=== PATIENT | female | born 1985 | race Caucasian/White ===

== ENCOUNTER 2020-05-14 20:15 | Emergency (ER) | payer MEDICARE, MEDICAID ==
--- NOTE | 2020-05-14 21:06 | EDM.PDOC ---
ED HPI GENERAL MEDICAL PROBLEM - General Chief Complaint: General Stated Complaint: Right lateral rib pain Time Seen by Provider: 05/14/20 20:20 Source of Information: Reports: Patient History Limitations: Reports: No Limitations - History of Present Illness INITIAL COMMENTS - FREE TEXT/NARRATIVE: Pt. presents to ER with complaints of respirophasic R lateral lower chest pain. Pt. states that she thinks that she overdid it while rearranging her bedroom this weekend. Denies any specific trauma to the area. She states that the discomfort is worse with deep breathing and movement. Denies any fever or chills. She has not had any cough. She denies any substernal chest, jaw, neck, or arm pain. Pt. has a history of factor 5 leiden and history of PE which happened in 2012. She also has a history of spontaneous pneumothorax in the past as well. Pt. states that she is not short of breath, but states that the discomfort inhibits her ability to take a deep breath. She is not experiencing any calf tenderness. She is a smoker. Denies any hormone replacement therapy or use of control. Pt. is currently on disability due to chronic pain and mental health problems. Onset Date: 05/12/20 Location: Reports: Chest Quality: Reports: Sharp, Stabbing Treatments CLAIM REP: Reports: Acetaminophen, Other (see below) Other Treatments CLAIM REP: Flexeril 5mg. Right lateral ribs Pain Score (Numeric/FACES): 8 - Related Data Allergies Allergy/AdvReac Type Severity Reaction Status Date / Time codeine Allergy Itching Verified 05/14/20 20:45 gabapentin Allergy Swelling Verified 05/14/20 20:45 minocycline Allergy Hives Verified 05/14/20 20:45 trazodone Allergy Excitabilit Verified 05/14/20 20:45 y Home Meds: Home Meds Albuterol [Take Home: Albuterol 18 GM, 1 INH Pack] 2 puff INH Q4H PRN 05/14/20 [History] Cyclobenzaprine [Flexeril] 5 mg PO DAILY 05/14/20 [History] Fluticasone Propionate [Flonase] 1 inh NASBOTH DAILY 05/14/20 [History] Levothyroxine 150 mcg PO DAILY 05/14/20 [History] Loratadine 10 mg PO DAILY 05/14/20 [History] Naltrexone 50 mg PO DAILY 05/14/20 [History] Pantoprazole [ProTONIX] 40 mg PO DAILY 05/14/20 [History] QUEtiapine [SEROquel] 25 mg PO Q6H PRN 05/14/20 [History] Spironolactone 50 mg PO DAILY 05/14/20 [History] Spironolactone [Aldactone] 25 mg PO DAILY 05/14/20 [History] lamoTRIgine [Lamotrigine] 25 mg PO DAILY 05/14/20 [History] lamoTRIgine [Lamotrigine] 100 mg PO DAILY 05/14/20 [History] ED ROS GENERAL - Review of Systems Review Of Systems: See Below Constitutional: Reports: No Symptoms. Denies: Fever, Chills, Malaise, Weakness, Fatigue, Diaphoresis, Weight Loss HEENT: Denies: No Symptoms Respiratory: Reports: Pleuritic Chest Pain. Denies: Shortness of Breath, Cough, Hemoptysis Cardiovascular: Reports: No Symptoms Endocrine: Reports: No Symptoms GI/Abdominal: Reports: No Symptoms : Reports: No Symptoms Musculoskeletal: Reports: No Symptoms Skin: Reports: No Symptoms Neurological: Reports: No Symptoms Psychiatric: Reports: No Symptoms Hematologic/Lymphatic: Reports: Other (see HPI) Immunologic: Reports: No Symptoms ED EXAM, GENERAL - Physical Exam Exam: See Below Exam Limited By: No Limitations General Appearance: Alert, WD/WN, No Apparent Distress Respiratory/Chest: No Respiratory Distress, Lungs Clear, Normal Breath Sounds, No Accessory Muscle Use, Chest Non-Tender Cardiovascular: Regular Rate, Rhythm, No Edema Peripheral Pulses: 4+: Radial (L) GI/Abdominal: Soft, Non-Tender, No Mass (Female) Exam: Deferred Rectal (Female) Exam: Deferred Back Exam: Normal Inspection, Decreased Range of Motion Extremities: Normal Inspection, Normal Range of Motion, Non-Tender, No Pedal Edema, Normal Capillary Refill Neurological: Alert, Oriented, CN II-XII Intact, Normal Cognition, Normal Gait, Normal Reflexes, No Motor/Sensory Deficits Psychiatric: Normal Affect, Normal Mood Skin Exam: Warm, Dry, Intact, Normal Color, No Rash Lymphatic: No Adenopathy Course - Vital Signs Last Recorded V/S: Last Vital Signs Temp 36.2 C 05/14/20 20:15 Pulse 84 05/14/20 20:15 Resp 16 05/14/20 20:15 BP 122/79 05/14/20 20:15 Pulse Ox 95 05/14/20 20:15 - Orders/Labs/Meds Orders: Active Orders 24 hr Category Date Time Status Chest 2V [CR] Stat Exams 05/14/20 20:51 Taken PTT,PARTIAL THROMBOPLSTIN TIME [COAG] Stat Lab 05/14/20 21:06 Received Labs: Laboratory Tests 05/14/20 05/14/20 05/14/20 Range/Units 21:06 21:06 21:06 WBC 13.7 H (4.0-10.0) x10^3/uL RBC 4.93 (4.00-5.50) x10^6/uL Hgb 15.5 (12.0-16.0) g/dL Hct 45.1 (33.0-47.0) % MCV 91.5 (78.0-93.0) fL MCH 31.4 (26.0-32.0) pg MCHC 34.4 (32.0-36.0) g/dL RDW Coeff of Calista 12.7 (10.0-15.0) % Plt Count 351 (130-400) x10^3/uL Neut % (Auto) 77.6 (50.0-80.0) % Lymph % (Auto) 14.1 L (25.0-50.0) % [place] % (Auto) 7.2 (2.0-11.0) % Eos % (Auto) 1.0 (0.0-4.0) % Baso % (Auto) 0.1 L (0.2-1.2) % PT 10.0 (9.5-12.3) SEC INR 0.9 L (2.0-3.5) D-Dimer, Quantitative 0.35 (<=0.58) mg/LFEU Sodium 137 (136-145) mmol/L Potassium 4.3 (3.5-5.1) mmol/L Chloride 100 (98-107) mmol/L Carbon Dioxide 29 (21-32) mmol/L Anion Gap 12.3 (10-20) mmol/L BUN 14 (7-18) mg/dL Creatinine 0.9 (0.55-1.02) mg/dL Est Cr Clr Drug Dosing 77.76 mL/min Estimated GFR (MDRD) > 60 Glucose 102 (74-106) mg/dL Calcium 9.6 (8.5-10.1) mg/dL Corrected Calcium 9.36 (8.5-10.1) mg/dL Total Bilirubin 0.3 (0.2-1.0) mg/dL AST 18 (15-37) U/L ALT 23 (14-59) U/L Alkaline Phosphatase 70 (46-116) U/L Total Protein 7.9 (6.4-8.2) g/dL Albumin 4.3 (3.4-5.0) g/dL Globulin 3.6 Albumin/Globulin Ratio 1.19 - Radiology Interpretation Free Text/Narrative:: chest x-ray negative for acute pathology Departure - Departure Time of Disposition: 21:44 Disposition: Home, Self-Care 01 Clinical Impression: Chest pain, atypical - Discharge Information Instructions: Tramadol tablets, Nonspecific Chest Pain, Adult, [id number] Referrals: PCP,None [Primary Care Provider] - Forms: ED Department Discharge Additional Instructions: tramadol 50mg 1 three times daily as needed for pain Ice painful area for 20 min every hour Continue with the tylenol Follow-up in clinic in 7-10 days if not gradually improving. Sepsis Event Note (ED) - Evaluation Sepsis Screening Result: No Definite Risk - Focused Exam Vital Signs: Vital Signs Temp Pulse Resp BP Pulse Ox 05/14/20 20:15 36.2 C 84 16 122/79 95 - Problem List Review Problem List Initiated/Reviewed/Updated: Yes - My Orders Last 24 Hours: My Active Orders 05/14/20 20:51 Chest 2V [CR] Stat 05/14/20 21:06 PTT,PARTIAL THROMBOPLSTIN TIME [COAG] Stat - Assessment/Plan Last 24 Hours: My Active Orders 05/14/20 20:51 Chest 2V [CR] Stat 05/14/20 21:06 PTT,PARTIAL THROMBOPLSTIN TIME [COAG] Stat Plan: tramadol 50mg 1 three times daily as needed for pain Ice painful area for 20 min every hour Continue with the tylenol Follow-up in clinic in 7-10 days if not gradually improving.
[2020-05-14 21:30] LABS: CHLORIDE,CL 100 mmol/L (98-107); SODIUM,NA 137 mmol/L (136-145)
[2020-05-14 21:31] LABS: ANION GAP 12.3 mmol/L (10-20)
[2020-05-14] MEDS ORDERED: Take Home: traMADol 50 MG, 4 Tab Pack PO ONE (21:48)
--- NOTE | 2020-05-15 07:31 | CR ---
[id number] RAD/RAD Chest PA And Lateral EXAM: FRONTAL AND LATERAL CHEST INDICATION: Right lateral chest pain. COMPARISON: None. DISCUSSION: The heart and lungs are normal in appearance. IMPRESSION: 1. Negative exam. Darrin Mata MD 05/15/20 0729 Thank you for allowing us to participate in the care of your patient.
== END 2020-05-14 21:58 | disposition home or self-care (01) ==
LOC: VM.ED 20:15
DX: R07.89 Other chest pain (principal); Z88.5 Allergy status to narcotic agent; Z88.1 Allergy status to other antibiotic agents; Z88.8 Allergy status to other drugs, medicaments and biological substances
CPT/HCPCS: 36415; 71046; 80053; 85025; 85379; 85610; 85730; 99285; A9270; 99283

== ENCOUNTER 2020-06-02 07:10 | Emergency (ER) | payer MEDICARE, MEDICAID ==
[2020-06-02] MEDS ORDERED: Sodium Chloride 0.9% 10 ML Syringe FLUSH PRN (07:46)
[2020-06-02] MEDS ORDERED: Ondansetron 4 MG/2 ML SDV IVPUSH ONE (07:46)
[2020-06-02] MEDS: Sodium Chloride 0.9% 1,000 ML IV ONE (08:00)
[2020-06-02 08:24] LABS: ANION GAP 14.4 mmol/L (10-20); CHLORIDE,CL 101 mmol/L (98-107); SODIUM,NA 138 mmol/L (136-145)
[2020-06-02 08:31] LABS: BUPRENORPHINE,URINE NEGATIVE (NEGATIVE); MARIJUANA,URINE NEGATIVE (NEGATIVE); METHYLENEDIOXYMETHAMP,UR NEGATIVE (NEGATIVE); PHENCYCLIDINE,URINE NEGATIVE (NEGATIVE)
--- NOTE | 2020-06-02 09:06 | EDM.PDOC ---
ED HPI GENERAL MEDICAL PROBLEM - General Chief Complaint: Behavioral/Psych Stated Complaint: psych Time Seen by Provider: 06/02/20 07:15 Source of Information: Reports: Patient History Limitations: Reports: No Limitations - History of Present Illness INITIAL COMMENTS - FREE TEXT/NARRATIVE: Patient comes into the emergency department with police For acute alcohol intoxication and depressive symptoms. Patient was drinking Last evening after she got into a verbal disagreement with another individual. Patient states that she has been able to maintain her sobriety for approximately 2 years and ended up drinking a 1.75 mL bottle of vodka. She ended up calling the crisis line in [place] where she is originally from and they contacted the police department to do a welfare check. The police were able to assist the patient in transportation to the emergency department for further evaluation. The patient states that she has felt sad and down at times. However she denies any suicidal thoughts, plans or intent. Patient states currently she denies any feelings of sadness, loss of interest, helpless, hopeless, worthless, low energy, fatigue, or depressed symptoms. Patient states that she ended up drinking too much last night and some of her emotions got the best of her however she has no longer any of those symptoms that she was expressing to the crisis line. Patient states that she has never had suicidal ideation plans or intents in the past. Patient denies any other illicit drugs use. Patient states her last drink was approximately 1 hour before arrival to the emergency department. Patient denies any active chest pain, shortness of breath, dizziness, lightheadedness, blurred vision, GI upset, or peripheral edema. Patient also denies any active COVID19 symptoms or exposure to individuals with COVID-19. Severity: Mild Improves with: Reports: None Worsens with: Reports: None Associated Symptoms: Reports: No Other Symptoms - Related Data Allergies Allergy/AdvReac Type Severity Reaction Status Date / Time codeine Allergy Itching Verified 05/14/20 20:45 gabapentin Allergy Swelling Verified 05/14/20 20:45 minocycline Allergy Hives Verified 05/14/20 20:45 trazodone Allergy Excitabilit Verified 05/14/20 20:45 y Home Meds: Home Meds Albuterol [Take Home: Albuterol 18 GM, 1 INH Pack] 2 puff INH Q4H PRN 05/14/20 [History] Cyclobenzaprine [Flexeril] 5 mg PO DAILY 05/14/20 [History] Fluticasone Propionate [Flonase] 1 inh NASBOTH DAILY 05/14/20 [History] Levothyroxine 150 mcg PO DAILY 05/14/20 [History] Loratadine 10 mg PO DAILY 05/14/20 [History] Naltrexone 50 mg PO DAILY 05/14/20 [History] Pantoprazole [ProTONIX] 40 mg PO DAILY 05/14/20 [History] QUEtiapine [SEROquel] 25 mg PO Q6H PRN 05/14/20 [History] Spironolactone 50 mg PO DAILY 05/14/20 [History] Spironolactone [Aldactone] 25 mg PO DAILY 05/14/20 [History] lamoTRIgine [Lamotrigine] 25 mg PO DAILY 05/14/20 [History] lamoTRIgine [Lamotrigine] 100 mg PO DAILY 05/14/20 [History] Past Medical History Cardiovascular History: Reports: Blood Clots/VTE/DVT Respiratory History: Reports: Asthma Psychiatric History: Reports: Other (See Below) Other Psychiatric History: Borderline Personality Disorder Endocrine/Metabolic History: Reports: Hypothyroidism Other Hematologic History: Factor 5 - Past Surgical History GI Surgical History: Reports: Bariatric Procedure Social & Family History - Tobacco Use Smoking Status *Q: Current Every Day Smoker Years of Tobacco use: 5 Packs/Tins Daily: 0 - Recreational Drug Use Recreational Drug Use: No ED ROS GENERAL - Review of Systems Review Of Systems: Comprehensive ROS is negative, except as noted in HPI. Constitutional: Reports: No Symptoms HEENT: Reports: No Symptoms Respiratory: Reports: No Symptoms Cardiovascular: Reports: No Symptoms Endocrine: Reports: No Symptoms GI/Abdominal: Reports: No Symptoms : Reports: No Symptoms Musculoskeletal: Reports: No Symptoms Skin: Reports: No Symptoms Neurological: Reports: No Symptoms Psychiatric: Reports: No Symptoms Hematologic/Lymphatic: Reports: No Symptoms ED EXAM, GENERAL - Physical Exam Exam: See Below Exam Limited By: No Limitations General Appearance: Alert, WD/WN, No Apparent Distress Eye Exam: Bilateral Eye: EOMI, PERRL Neck: Normal Inspection, Supple, Non-Tender, Full Range of Motion Respiratory/Chest: No Respiratory Distress, Lungs Clear, Normal Breath Sounds, No Accessory Muscle Use, Chest Non-Tender Cardiovascular: Normal Peripheral Pulses, Regular Rate, Rhythm, No Edema, No Murmur GI/Abdominal: Normal Bowel Sounds, Soft, Non-Tender, No Distention Back Exam: Normal Inspection, Full Range of Motion Extremities: Normal Inspection, Normal Range of Motion, Non-Tender, Normal Capillary Refill Neurological: Alert, Oriented, CN II-XII Intact, Normal Gait Psychiatric: Normal Affect, Normal Mood Skin Exam: Warm, Dry, Intact, Normal Color, No Rash Course - Vital Signs Last Recorded V/S: Last Vital Signs Temp 36.4 C 06/02/20 07:20 Pulse 76 06/02/20 07:20 Resp 18 06/02/20 07:20 BP 114/74 06/02/20 07:20 Pulse Ox 94 L 06/02/20 07:20 - Orders/Labs/Meds Orders: Active Orders 24 hr Category Date Time Status Sodium Chloride 0.9% [Saline Flush] Med 06/02/20 07:46 Active 10 ml FLUSH ASDIRECTED PRN Peripheral IV Insertion Adult [OM.PC] Stat Oth 06/02/20 07:45 Ordered Medication Orders Sodium Chloride (Saline Flush) 10 ml FLUSH ASDIRECTED PRN PRN Reason: Keep Vein Open Labs: Laboratory Tests 06/02/20 06/02/20 06/02/20 Range/Units 07:55 07:55 07:55 WBC 7.4 (4.0-10.0) x10^3/uL RBC 4.56 (4.00-5.50) x10^6/uL Hgb 14.4 (12.0-16.0) g/dL Hct 41.0 (33.0-47.0) % MCV 89.9 (78.0-93.0) fL MCH 31.6 (26.0-32.0) pg MCHC 35.1 (32.0-36.0) g/dL RDW Coeff of Calista 13.2 (10.0-15.0) % Plt Count 364 (130-400) x10^3/uL Neut % (Auto) 51.8 (50.0-80.0) % Lymph % (Auto) 38.9 (25.0-50.0) % [place] % (Auto) 6.6 (2.0-11.0) % Eos % (Auto) 2.4 (0.0-4.0) % Baso % (Auto) 0.3 (0.2-1.2) % Sodium 138 (136-145) mmol/L Potassium 3.4 L (3.5-5.1) mmol/L Chloride 101 (98-107) mmol/L Carbon Dioxide 26 (21-32) mmol/L Anion Gap 14.4 (10-20) mmol/L BUN 5 L (7-18) mg/dL Creatinine 0.7 (0.55-1.02) mg/dL Est Cr Clr Drug Dosing 99.98 mL/min Estimated GFR (MDRD) > 60 Glucose 98 (74-106) mg/dL Calcium 9.1 (8.5-10.1) mg/dL Corrected Calcium 9.18 (8.5-10.1) mg/dL Total Bilirubin 0.3 (0.2-1.0) mg/dL AST 20 (15-37) U/L ALT 23 (14-59) U/L Alkaline Phosphatase 56 (46-116) U/L Total Protein 7.3 (6.4-8.2) g/dL Albumin 3.9 (3.4-5.0) g/dL Globulin 3.4 Albumin/Globulin Ratio 1.15 Urine Opiates Screen (NEGATIVE) Ur Buprenorphine Scrn (NEGATIVE) Ur Oxycodone Screen (NEGATIVE) Ur EDDP (Meth Metab) (NEGATIVE) Urine Methadone Screen (NEGATIVE) Ur Barbituates Screen (NEGATIVE) Ur Tricyclics Screen (NEGATIVE) Ur Phencyclidine Scrn (NEGATIVE) Ur Amphetamines Screen (NEGATIVE) U Methamphetamines Scrn (NEGATIVE) Urine MDMA Screen (NEGATIVE) U Benzodiazepines Scrn (NEGATIVE) Urine Cocaine Screen (NEGATIVE) U Marijuana (THC) Screen (NEGATIVE) Ethyl Alcohol 260 H (0-3) mg/dL 06/02/20 Range/Units 08:00 WBC (4.0-10.0) x10^3/uL RBC (4.00-5.50) x10^6/uL Hgb (12.0-16.0) g/dL Hct (33.0-47.0) % MCV (78.0-93.0) fL MCH (26.0-32.0) pg MCHC (32.0-36.0) g/dL RDW Coeff of Calista (10.0-15.0) % Plt Count (130-400) x10^3/uL Neut % (Auto) (50.0-80.0) % Lymph % (Auto) (25.0-50.0) % [place] % (Auto) (2.0-11.0) % Eos % (Auto) (0.0-4.0) % Baso % (Auto) (0.2-1.2) % Sodium (136-145) mmol/L Potassium (3.5-5.1) mmol/L Chloride (98-107) mmol/L Carbon Dioxide (21-32) mmol/L Anion Gap (10-20) mmol/L BUN (7-18) mg/dL Creatinine (0.55-1.02) mg/dL Est Cr Clr Drug Dosing mL/min Estimated GFR (MDRD) Glucose (74-106) mg/dL Calcium (8.5-10.1) mg/dL Corrected Calcium (8.5-10.1) mg/dL Total Bilirubin (0.2-1.0) mg/dL AST (15-37) U/L ALT (14-59) U/L Alkaline Phosphatase (46-116) U/L Total Protein (6.4-8.2) g/dL Albumin (3.4-5.0) g/dL Globulin Albumin/Globulin Ratio Urine Opiates Screen Negative (NEGATIVE) Ur Buprenorphine Scrn Negative (NEGATIVE) Ur Oxycodone Screen Negative (NEGATIVE) Ur EDDP (Meth Metab) Negative (NEGATIVE) Urine Methadone Screen Negative (NEGATIVE) Ur Barbituates Screen Negative (NEGATIVE) Ur Tricyclics Screen Negative (NEGATIVE) Ur Phencyclidine Scrn Negative (NEGATIVE) Ur Amphetamines Screen Negative (NEGATIVE) U Methamphetamines Scrn Negative (NEGATIVE) Urine MDMA Screen Negative (NEGATIVE) U Benzodiazepines Scrn Negative (NEGATIVE) Urine Cocaine Screen Negative (NEGATIVE) U Marijuana (THC) Screen Negative (NEGATIVE) Ethyl Alcohol (0-3) mg/dL Meds: Medications Generic Name Dose Route Start Last Admin Trade Name Freq PRN Reason Stop Dose Admin Sodium Chloride 10 ml 06/02/20 07:46 Saline Flush FLUSH ASDIRECTED PRN Keep Vein Open Discontinued Medications Generic Name Dose Route Start Last Admin Trade Name Freq PRN Reason Stop Dose Admin Sodium Chloride 1,000 mls @ 1,000 mls/hr 06/02/20 07:46 06/02/20 08:00 Normal Saline IV 06/02/20 08:45 1,000 mls/hr ONETIME ONE Administration Ondansetron HCl 4 mg 06/02/20 07:46 Zofran IVPUSH 06/02/20 07:47 ONETIME ONE - Re-Assessments/Exams Free Text/Narrative Re-Assessment/Exam: 06/02/20 10:26 pt is up ambulating without assistance. She is alert and oriented. She is using her phone to call a friend to get a ride home. Departure - Departure Time of Disposition: 10:30 Disposition: Home, Self-Care 01 Condition: Good Clinical Impression: Depressive disorder, Alcohol abuse - Discharge Information *PRESCRIPTION DRUG MONITORING PROGRAM REVIEWED*: Not Applicable *COPY OF PRESCRIPTION DRUG MONITORING REPORT IN PATIENT JAVIER: Not Applicable Instructions: Alcohol Use Disorder, Suicidal Feelings: How to Help Yourself, Major Depressive Disorder, Adult Referrals: Ana Maria Trinidad NP [Primary Care Provider] - Forms: ED Department Discharge Additional Instructions: 1. rest 2. increase your water intake 3. Continue all at home medications 4. Activity and diet as tolerated 5. Can take over the counter Tylenol for any pain or discomfort 6. Follow up with PCP if symptoms continue, return, or progress 7. Call with any questions or concerns Sepsis Event Note (ED) - Evaluation Sepsis Screening Result: No Definite Risk - Focused Exam Vital Signs: Vital Signs Temp Pulse Resp BP Pulse Ox 06/02/20 07:20 36.4 C 76 18 114/74 94 L - My Orders Last 24 Hours: My Active Orders 06/02/20 07:45 Peripheral IV Insertion Adult [OM.PC] Stat 06/02/20 07:46 Sodium Chloride 0.9% [Saline Flush] 10 ml FLUSH ASDIRECTED PRN - Assessment/Plan Last 24 Hours: My Active Orders 06/02/20 07:45 Peripheral IV Insertion Adult [OM.PC] Stat 06/02/20 07:46 Sodium Chloride 0.9% [Saline Flush] 10 ml FLUSH ASDIRECTED PRN Assessment:: 1. intoxication Plan: 1. Labs completed in the ER. Results reviewed with the patient 2. IV initiated in the emergency department 3. IV fluids provided 4. UA drug tox completed in ER 5. Zofran given in the ER to help with nausea 6. Patient and nursing staff was updated regarding the plan of care 7. Education provided the patient regarding activity, diet, rest, [id number] medication modalities, and follow-up care was provided 8. Patient and family are agreeable to the above plan of care 9. All questions and concerns were addressed with the patient and family prior to discharge
== END 2020-06-02 10:40 | disposition home or self-care (01) ==
LOC: VM.ED 07:10
DX: F32.9 Major depressive disorder, single episode, unspecified (principal); F10.129 Alcohol abuse with intoxication, unspecified; Y90.8 Blood alcohol level of 240 mg/100 ml or more; J45.909 Unspecified asthma, uncomplicated; E03.9 Hypothyroidism, unspecified; F17.210 Nicotine dependence, cigarettes, uncomplicated; Z88.5 Allergy status to narcotic agent; Z88.6 Allergy status to analgesic agent; Z88.1 Allergy status to other antibiotic agents; Z79.899 Other long term (current) drug therapy
CPT/HCPCS: 80053; 80305-QW; 80307; 85025; 96360; 99284; 99284-25; J7030

== ENCOUNTER 2020-06-04 22:49 | Emergency (ER) | payer MEDICARE, MEDICAID ==
[2020-06-04 23:49] LABS: CHLORIDE,CL 101 mmol/L (98-107); SODIUM,NA 141 mmol/L (136-145)
[2020-06-04 23:50] LABS: ANION GAP 14.6 mmol/L (10-20)
--- NOTE | 2020-06-04 23:51 | EDM.PDOC ---
ED HPI GENERAL MEDICAL PROBLEM - General Chief Complaint: Behavioral/Psych Stated Complaint: SUICIDAL Time Seen by Provider: 06/04/20 22:55 Source of Information: Reports: Patient History Limitations: Reports: No Limitations - History of Present Illness INITIAL COMMENTS - FREE TEXT/NARRATIVE: Pt. presents to ER with complaints of suicidal ideation. She was seen in the ER last weekend with complaints of depression and alcohol intoxication. According to documentation at that time, she was not felt to be actively suicidal at that time and had no plan. Please see documentation from Rika Cardenas NP documentation. Pt. states that she has consumed 2 pints of hard liquor tonight. Denies any street drug consumption. She states that she has a history of severe mental health problems and has been hospitalized at [facility] in [facility] numerous times, and most recently at [facility] in [place], [place]. She previously worked at [employer] but is now in disability. She is in a same sex relationship. Pt. was quite resistive to answering questions initially. I did speak with the pt. Sister who lives in [place] that gave me a majority of this information. Onset: Today Location: Reports: Generalized - Related Data Allergies Allergy/AdvReac Type Severity Reaction Status Date / Time codeine Allergy Itching Verified 06/04/20 22:55 gabapentin Allergy Swelling Verified 06/04/20 22:55 latex Allergy Rash Verified 06/05/20 00:34 minocycline Allergy Hives Verified 06/04/20 22:55 nickel Allergy Rash Verified 06/05/20 00:34 trazodone Allergy Excitabilit Verified 06/04/20 22:55 y environmental Allergy Other Uncoded 06/05/20 00:34 Home Meds: Home Meds Albuterol [Take Home: Albuterol 18 GM, 1 INH Pack] 2 puff INH Q4H PRN 05/14/20 [History] Cyclobenzaprine [Flexeril] 5 mg PO DAILY 05/14/20 [History] Fluticasone Propionate [Flonase] 1 inh NASBOTH DAILY 05/14/20 [History] Levothyroxine 150 mcg PO DAILY 05/14/20 [History] Loratadine 10 mg PO DAILY 05/14/20 [History] Naltrexone 50 mg PO DAILY 05/14/20 [History] Pantoprazole [ProTONIX] 40 mg PO DAILY 05/14/20 [History] QUEtiapine [SEROquel] 25 mg PO Q6H PRN 05/14/20 [History] Spironolactone 50 mg PO DAILY 05/14/20 [History] Spironolactone [Aldactone] 25 mg PO DAILY 05/14/20 [History] lamoTRIgine [Lamotrigine] 25 mg PO DAILY 05/14/20 [History] lamoTRIgine [Lamotrigine] 100 mg PO DAILY 05/14/20 [History] Prazosin HCl [Prazosin] 3 mg PO BEDTIME 06/05/20 [History] Past Medical History Cardiovascular History: Reports: Blood Clots/VTE/DVT Respiratory History: Reports: Asthma Psychiatric History: Reports: Other (See Below) Other Psychiatric History: Borderline Personality Disorder Endocrine/Metabolic History: Reports: Hypothyroidism Other Hematologic History: Factor 5 - Past Surgical History GI Surgical History: Reports: Bariatric Procedure ED ROS GENERAL - Review of Systems Review Of Systems: See Below Constitutional: Reports: No Symptoms. Denies: Fever, Chills, Malaise HEENT: Reports: No Symptoms Respiratory: Reports: No Symptoms. Denies: Shortness of Breath, Wheezing, Cough Cardiovascular: Reports: No Symptoms Endocrine: Reports: No Symptoms GI/Abdominal: Reports: No Symptoms : Reports: No Symptoms Musculoskeletal: Reports: No Symptoms Skin: Reports: No Symptoms Neurological: Reports: No Symptoms. Denies: Dizziness, Headache, Numbness, Paresthesia, Seizure, Syncope, Trouble Speaking, Weakness, Change in Speech Psychiatric: Reports: Depression, Suicidal Ideation Hematologic/Lymphatic: Reports: No Symptoms Immunologic: Reports: No Symptoms ED EXAM, GENERAL - Physical Exam Exam: See Below Exam Limited By: No Limitations General Appearance: Alert, WD/WN, No Apparent Distress Eye Exam: Bilateral Eye: EOMI, PERRL Head: Atraumatic, Normocephalic Neck: Normal Inspection, Supple, Non-Tender, Full Range of Motion Respiratory/Chest: No Respiratory Distress, Lungs Clear, Normal Breath Sounds, No Accessory Muscle Use, Chest Non-Tender Cardiovascular: Normal Peripheral Pulses, Regular Rate, Rhythm, No Edema, No Gallop, No JVD, No Murmur, No Rub GI/Abdominal: Soft, Non-Tender, No Mass (Female) Exam: Deferred Rectal (Female) Exam: Deferred Back Exam: Normal Inspection, Full Range of Motion Extremities: Normal Inspection, Normal Range of Motion, Non-Tender, No Pedal Edema, Normal Capillary Refill Neurological: Alert, Oriented, CN II-XII Intact, Normal Cognition, Normal Gait, Normal Reflexes, No Motor/Sensory Deficits Psychiatric: Depressed Mood Skin Exam: Warm, Dry, Intact, Normal Color, No Rash Course - Vital Signs Last Recorded V/S: Last Vital Signs Temp 35.5 C L 06/04/20 22:49 Pulse 89 06/04/20 22:49 Resp 16 06/04/20 22:49 BP 137/97 H 06/04/20 22:49 Pulse Ox 96 06/04/20 22:49 - Orders/Labs/Meds Labs: Laboratory Tests 06/04/20 06/04/20 06/04/20 Range/Units 23:20 23:20 23:20 WBC 8.5 (4.0-10.0) x10^3/uL RBC 4.72 (4.00-5.50) x10^6/uL Hgb 14.7 (12.0-16.0) g/dL Hct 43.2 (33.0-47.0) % MCV 91.5 (78.0-93.0) fL MCH 31.1 (26.0-32.0) pg MCHC 34.0 (32.0-36.0) g/dL RDW Coeff of Calista 13.5 (10.0-15.0) % Plt Count 420 H (130-400) x10^3/uL Neut % (Auto) 53.3 (50.0-80.0) % Lymph % (Auto) 38.2 (25.0-50.0) % [place] % (Auto) 6.9 (2.0-11.0) % Eos % (Auto) 1.2 (0.0-4.0) % Baso % (Auto) 0.4 (0.2-1.2) % PT 10.2 (9.5-12.3) SEC INR 0.9 L (2.0-3.5) Sodium 141 (136-145) mmol/L Potassium 3.6 (3.5-5.1) mmol/L Chloride 101 (98-107) mmol/L Carbon Dioxide 29 (21-32) mmol/L Anion Gap 14.6 (10-20) mmol/L BUN 5 L (7-18) mg/dL Creatinine 0.7 (0.55-1.02) mg/dL Est Cr Clr Drug Dosing TNP Estimated GFR (MDRD) > 60 Glucose 98 (74-106) mg/dL Calcium 9.2 (8.5-10.1) mg/dL Corrected Calcium 9.12 (8.5-10.1) mg/dL Magnesium 1.9 (1.8-2.4) mg/dL Total Bilirubin 0.3 (0.2-1.0) mg/dL AST 31 (15-37) U/L ALT 31 (14-59) U/L Alkaline Phosphatase 60 (46-116) U/L Total Protein 7.8 (6.4-8.2) g/dL Albumin 4.1 (3.4-5.0) g/dL Globulin 3.7 Albumin/Globulin Ratio 1.11 TSH, Ultra Sensitive 3.354 (0.358-3.74) uIU/mL Urine Color (YELLOW) Urine Appearance (CLEAR) Urine pH (5.0-8.0) Ur Specific Ged[place] Urine Protein (NEGATIVE) mg/dL Urine Glucose (UA) (NEGATIVE) mg/dL Urine Ketones (NEGATIVE) mg/dL Urine Occult Blood (NEGATIVE) Urine Nitrite (NEGATIVE) Urine Bilirubin (NEGATIVE) Urine Urobilinogen (0.2) EU/dL Ur Leukocyte Esterase (NEGATIVE) Urine RBC (NOT SEEN) /HPF Urine WBC (NOT SEEN) /HPF Ur Squamous Epith Cells (NEGATIVE) /HPF Urine Bacteria (NEGATIVE) /HPF Urine Mucus (NEGATIVE) /LPF Urine HCG, Qual (NEGATIVE) Acetaminophen (10-30) ug/ml Ethyl Alcohol 248 H (0-3) mg/dL SARS CoV-2 RNA Rapid MOLLY (NEGATIVE) 06/04/20 06/05/20 06/05/20 Range/Units 23:20 00:18 00:29 WBC (4.0-10.0) x10^3/uL RBC (4.00-5.50) x10^6/uL Hgb (12.0-16.0) g/dL Hct (33.0-47.0) % MCV (78.0-93.0) fL MCH (26.0-32.0) pg MCHC (32.0-36.0) g/dL RDW Coeff of Calista (10.0-15.0) % Plt Count (130-400) x10^3/uL Neut % (Auto) (50.0-80.0) % Lymph % (Auto) (25.0-50.0) % [place] % (Auto) (2.0-11.0) % Eos % (Auto) (0.0-4.0) % Baso % (Auto) (0.2-1.2) % PT (9.5-12.3) SEC INR (2.0-3.5) Sodium (136-145) mmol/L Potassium (3.5-5.1) mmol/L Chloride (98-107) mmol/L Carbon Dioxide (21-32) mmol/L Anion Gap (10-20) mmol/L BUN (7-18) mg/dL Creatinine (0.55-1.02) mg/dL Est Cr Clr Drug Dosing Estimated GFR (MDRD) Glucose (74-106) mg/dL Calcium (8.5-10.1) mg/dL Corrected Calcium (8.5-10.1) mg/dL Magnesium (1.8-2.4) mg/dL Total Bilirubin (0.2-1.0) mg/dL AST (15-37) U/L ALT (14-59) U/L Alkaline Phosphatase (46-116) U/L Total Protein (6.4-8.2) g/dL Albumin (3.4-5.0) g/dL Globulin Albumin/Globulin Ratio TSH, Ultra Sensitive (0.358-3.74) uIU/mL Urine Color Light yellow (YELLOW) Urine Appearance Slightly cloudy H (CLEAR) Urine pH 5.5 (5.0-8.0) Ur Specific Geddes <=1.005 Urine Protein Negative (NEGATIVE) mg/dL Urine Glucose (UA) Negative (NEGATIVE) mg/dL Urine Ketones Negative (NEGATIVE) mg/dL Urine Occult Blood Small H (NEGATIVE) Urine Nitrite Negative (NEGATIVE) Urine Bilirubin Negative (NEGATIVE) Urine Urobilinogen 0.2 (0.2) EU/dL Ur Leukocyte Esterase Negative (NEGATIVE) Urine RBC 5-10 H (NOT SEEN) /HPF Urine WBC 0-5 (NOT SEEN) /HPF Ur Squamous Epith Cells Occasional H (NEGATIVE) /HPF Urine Bacteria Rare (NEGATIVE) /HPF Urine Mucus Rare H (NEGATIVE) /LPF Urine HCG, Qual (NEGATIVE) Acetaminophen 0 L (10-30) ug/ml Ethyl Alcohol (0-3) mg/dL SARS CoV-2 RNA Rapid MOLLY Negative (NEGATIVE) 06/05/20 Range/Units 00:29 WBC (4.0-10.0) x10^3/uL RBC (4.00-5.50) x10^6/uL Hgb (12.0-16.0) g/dL Hct (33.0-47.0) % MCV (78.0-93.0) fL MCH (26.0-32.0) pg MCHC (32.0-36.0) g/dL RDW Coeff of Calista (10.0-15.0) % Plt Count (130-400) x10^3/uL Neut % (Auto) (50.0-80.0) % Lymph % (Auto) (25.0-50.0) % Sear[place] % (Auto) (2.0-11.0) % Eos % (Auto) (0.0-4.0) % Baso % (Auto) (0.2-1.2) % PT (9.5-12.3) SEC INR (2.0-3.5) Sodium (136-145) mmol/L Potassium (3.5-5.1) mmol/L Chloride (98-107) mmol/L Carbon Dioxide (21-32) mmol/L Anion Gap (10-20) mmol/L BUN (7-18) mg/dL Creatinine (0.55-1.02) mg/dL Est Cr Clr Drug Dosing Estimated GFR (MDRD) Glucose (74-106) mg/dL Calcium (8.5-10.1) mg/dL Corrected Calcium (8.5-10.1) mg/dL Magnesium (1.8-2.4) mg/dL Total Bilirubin (0.2-1.0) mg/dL AST (15-37) U/L ALT (14-59) U/L Alkaline Phosphatase (46-116) U/L Total Protein (6.4-8.2) g/dL Albumin (3.4-5.0) g/dL Globulin Albumin/Globulin Ratio TSH, Ultra Sensitive (0.358-3.74) uIU/mL Urine Color (YELLOW) Urine Appearance (CLEAR) Urine pH (5.0-8.0) Ur Specific Ged[place] Urine Protein (NEGATIVE) mg/dL Urine Glucose (UA) (NEGATIVE) mg/dL Urine Ketones (NEGATIVE) mg/dL Urine Occult Blood (NEGATIVE) Urine Nitrite (NEGATIVE) Urine Bilirubin (NEGATIVE) Urine Urobilinogen (0.2) EU/dL Ur Leukocyte Esterase (NEGATIVE) Urine RBC (NOT SEEN) /HPF Urine WBC (NOT SEEN) /HPF Ur Squamous Epith Cells (NEGATIVE) /HPF Urine Bacteria (NEGATIVE) /HPF Urine Mucus (NEGATIVE) /LPF Urine HCG, Qual Negative (NEGATIVE) Acetaminophen (10-30) ug/ml Ethyl Alcohol (0-3) mg/dL SARS CoV-2 RNA Rapid MOLLY (NEGATIVE) Departure - Departure Time of Disposition: 00:54 Disposition: DC/Tfer to Psych Hosp/Unit 65 Clinical Impression: Suicidal ideation, Intoxication - Discharge Information Referrals: PCP,None [Primary Care Provider] - Forms: ED Department Discharge Sepsis Event Note (ED) - Evaluation Sepsis Screening Result: No Definite Risk - Focused Exam Vital Signs: Vital Signs Temp Pulse Resp BP Pulse Ox 06/04/20 22:49 35.5 C L 89 16 137/97 H 96 - Assessment/Plan Plan: Pt. will be transported to [facility]. Pt. was accepted for inpatient psych admission by Dr. Kim. Pt. will be transported via [facility].
[2020-06-05] MEDS ORDERED: Acetaminophen 500 MG Tab PO ONE (00:55)
== END 2020-06-05 01:29 ==
LOC: VM.ED 22:49
DX: R45.851 Suicidal ideations (principal); F10.129 Alcohol abuse with intoxication, unspecified; J45.909 Unspecified asthma, uncomplicated; E03.9 Hypothyroidism, unspecified; Z88.5 Allergy status to narcotic agent; Z88.6 Allergy status to analgesic agent; Z91.041 Radiographic dye allergy status; Z88.1 Allergy status to other antibiotic agents; Z91.048 Other nonmedicinal substance allergy status; Z79.899 Other long term (current) drug therapy; Z20.828 Contact with and (suspected) exposure to other viral communicable diseases; Y90.8 Blood alcohol level of 240 mg/100 ml or more
CPT/HCPCS: 36415; 80053; 80307; 81001; 81025; 83735; 84443; 85025; 85610; 99284; 99285; A9270-GY; U0002

== ENCOUNTER 2020-07-02 06:41 | Emergency (ER) | payer MEDICARE, MEDICAID ==
[2020-07-02 07:55] LABS: CHLORIDE,CL 98 mmol/L (98-107); SODIUM,NA 135 mmol/L (136-145)
[2020-07-02 07:56] LABS: ANION GAP 12.8 mmol/L (10-20)
--- NOTE | 2020-07-02 08:09 | EDM.PDOCBH ---
ED HPI GENERAL MEDICAL PROBLEM - General Chief Complaint: Behavioral/Psych Stated Complaint: ALCOHOLISM Time Seen by Provider: 07/02/20 07:17 Source of Information: Reports: Patient History Limitations: Reports: No Limitations - History of Present Illness INITIAL COMMENTS - FREE TEXT/NARRATIVE: Pt states she stopped drinking last PM and wants to be checked Has hx/o alcohol abuse in past Has stopped drinking in past No specific complaints Onset: Gradual Location: Reports: Generalized Back Pain Score (Numeric/FACES): 6 - Related Data Allergies Allergy/AdvReac Type Severity Reaction Status Date / Time codeine Allergy Itching Verified 07/02/20 07:58 gabapentin Allergy Swelling Verified 07/02/20 07:58 latex Allergy Rash Verified 07/02/20 07:58 minocycline Allergy Hives Verified 07/02/20 07:58 nickel Allergy Rash Verified 07/02/20 07:58 trazodone Allergy Excitabilit Verified 07/02/20 07:58 y environmental Allergy Other Uncoded 06/05/20 00:34 Home Meds: Home Meds Albuterol [Take Home: Albuterol 18 GM, 1 INH Pack] 2 puff INH Q4H PRN 05/14/20 [History] Cyclobenzaprine [Flexeril] 5 mg PO DAILY 05/14/20 [History] Fluticasone Propionate [Flonase] 1 inh NASBOTH DAILY 05/14/20 [History] Levothyroxine 150 mcg PO DAILY 05/14/20 [History] Loratadine 10 mg PO DAILY 05/14/20 [History] Naltrexone 50 mg PO DAILY 05/14/20 [History] Pantoprazole [ProTONIX] 40 mg PO DAILY 05/14/20 [History] QUEtiapine [SEROquel] 25 mg PO Q6H PRN 05/14/20 [History] Spironolactone 50 mg PO DAILY 05/14/20 [History] Spironolactone [Aldactone] 25 mg PO DAILY 05/14/20 [History] lamoTRIgine [Lamotrigine] 25 mg PO DAILY 05/14/20 [History] lamoTRIgine [Lamotrigine] 100 mg PO DAILY 05/14/20 [History] Prazosin HCl [Prazosin] 3 mg PO BEDTIME 06/05/20 [History] Past Medical History Cardiovascular History: Reports: Blood Clots/VTE/DVT Respiratory History: Reports: Asthma Psychiatric History: Reports: Other (See Below) Other Psychiatric History: Borderline Personality Disorder Endocrine/Metabolic History: Reports: Hypothyroidism Other Hematologic History: Factor 5 - Past Surgical History GI Surgical History: Reports: Bariatric Procedure Social & Family History - Tobacco Use Tobacco Use Status *Q: Current Status Unknown ED ROS GENERAL - Review of Systems Review Of Systems: See Below Constitutional: Reports: Fatigue, Decreased Appetite Respiratory: Reports: No Symptoms Cardiovascular: Reports: No Symptoms GI/Abdominal: Reports: No Symptoms Musculoskeletal: Reports: No Symptoms Neurological: Reports: No Symptoms Psychiatric: Reports: Anxiety, Depression ED EXAM, BEHAVIORAL HEALTH - Physical Exam Exam: See Below Exam Limited By: No Limitations General Appearance: Alert, WD/WN Throat/Mouth: Normal Oropharynx Head: Atraumatic Neck: Supple Respiratory/Chest: Lungs Clear Cardiovascular: Regular Rate, Rhythm GI/Abdominal: Non-Tender Extremities: Normal Inspection Neurological: Normal Cognition, No Motor/Sensory Deficits, Oriented x 3 Psychiatric: Alert COURSE, BEHAVIORAL HEALTH COMP - Course Vital Signs: Last Vital Signs Temp 97.8 F 07/02/20 06:53 Pulse 99 07/02/20 06:53 Resp 18 07/02/20 06:53 BP 126/97 H 07/02/20 06:53 Pulse Ox 97 07/02/20 06:53 Orders, Labs, Meds: Laboratory Tests 07/02/20 07/02/20 Range/Units 07:30 07:30 WBC 12.4 H (4.0-10.0) x10^3/uL RBC 4.97 (4.00-5.50) x10^6/uL Hgb 15.5 (12.0-16.0) g/dL Hct 44.5 (33.0-47.0) % MCV 89.5 (78.0-93.0) fL MCH 31.2 (26.0-32.0) pg MCHC 34.8 (32.0-36.0) g/dL RDW Coeff of Calista 13.1 (10.0-15.0) % Plt Count 350 (130-400) x10^3/uL Neut % (Auto) 81.1 H (50.0-80.0) % Lymph % (Auto) 10.9 L (25.0-50.0) % [place] % (Auto) 7.6 (2.0-11.0) % Eos % (Auto) 0.2 (0.0-4.0) % Baso % (Auto) 0.2 (0.2-1.2) % Sodium 135 L (136-145) mmol/L Potassium 3.8 (3.5-5.1) mmol/L Chloride 98 (98-107) mmol/L Carbon Dioxide 28 (21-32) mmol/L Anion Gap 12.8 (10-20) mmol/L BUN 9 (7-18) mg/dL Creatinine 0.8 (0.55-1.02) mg/dL Est Cr Clr Drug Dosing TNP Estimated GFR (MDRD) > 60 Glucose 100 (74-106) mg/dL Calcium 9.1 (8.5-10.1) mg/dL Corrected Calcium 9.18 (8.5-10.1) mg/dL Magnesium 1.5 L (1.8-2.4) mg/dL Total Bilirubin 1.3 H (0.2-1.0) mg/dL AST 43 H (15-37) U/L ALT 43 (14-59) U/L Alkaline Phosphatase 84 (46-116) U/L Total Protein 7.7 (6.4-8.2) g/dL Albumin 3.9 (3.4-5.0) g/dL Globulin 3.8 Albumin/Globulin Ratio 1.03 Ethyl Alcohol < 3 (0-3) mg/dL Re-Assessment/Re-Exam: Pt stable in ER See lab Departure - Departure Time of Disposition: 08:10 Disposition: Home, Self-Care 01 Clinical Impression: Alcohol abuse - Discharge Information *PRESCRIPTION DRUG MONITORING PROGRAM REVIEWED*: Not Applicable *COPY OF PRESCRIPTION DRUG MONITORING REPORT IN PATIENT JAVIER: Not Applicable Instructions: Alcohol Use Disorder, Alcohol Abuse and Dependence Information, Adult Referrals: Ana Maria Trinidad NP [Primary Care Provider] - Additional Instructions: Follow up in clinic Sepsis Event Note (ED) - Evaluation Sepsis Screening Result: No Definite Risk - Focused Exam Vital Signs: Vital Signs Temp Pulse Resp BP Pulse Ox 07/02/20 06:53 97.8 F 99 18 126/97 H 97
[2020-07-02] MEDS ORDERED: Ondansetron 4 MG Tab.DIS PO ONE (08:19)
== END 2020-07-02 08:30 | disposition home or self-care (01) ==
LOC: VM.ED 06:41
DX: F10.10 Alcohol abuse, uncomplicated (principal); J45.909 Unspecified asthma, uncomplicated; E03.9 Hypothyroidism, unspecified; Z79.899 Other long term (current) drug therapy; Z88.5 Allergy status to narcotic agent; Z88.8 Allergy status to other drugs, medicaments and biological substances; Z91.040 Latex allergy status; Z91.048 Other nonmedicinal substance allergy status; Z86.718 Personal history of other venous thrombosis and embolism
CPT/HCPCS: 36415; 80053; 80307; 83735; 85025; 99283; 99284; A9270-GY

== ENCOUNTER 2020-12-04 20:37 | Emergency (ER) | payer MEDICARE, MEDICAID ==
[2020-12-04 21:26] LABS: BARBITURATE SCREEN,URINE NEGATIVE (NEGATIVE); BENZODIAZEPINES SCREEN,URINE NEGATIVE (NEGATIVE); EDDP,URINE SCREEN NEGATIVE (NEGATIVE); METHAMPHETAMINE SCREEN, URINE NEGATIVE (NEGATIVE); TCA SCREEN,URINE POSITIVE (NEGATIVE); THC SCREEN,URINE 50 NG/ML NEGATIVE (NEGATIVE)
[2020-12-04 21:42] LABS: CHLORIDE,CL 96 mmol/L (98-107); SODIUM,NA 134 mmol/L (136-145)
[2020-12-04 21:44] LABS: ACETAMINOPHEN 0 ug/ml (10-30); ANION GAP 15.8 mmol/L (5-15)
[2020-12-04] MEDS ORDERED: Potassium Chloride 10% 20 MEQ/15 ML Soln 15 ML UD Cup PO ONE (21:49)
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
== END 2020-12-04 22:30 ==
LOC: VM.ED 20:37
DX: R45.851 Suicidal ideations (principal); E87.6 Hypokalemia; F10.220 Alcohol dependence with intoxication, uncomplicated; J45.909 Unspecified asthma, uncomplicated; E03.9 Hypothyroidism, unspecified; Y90.8 Blood alcohol level of 240 mg/100 ml or more; Z88.5 Allergy status to narcotic agent; Z88.6 Allergy status to analgesic agent; Z91.040 Latex allergy status; Z88.1 Allergy status to other antibiotic agents; Z91.048 Other nonmedicinal substance allergy status; Z88.8 Allergy status to other drugs, medicaments and biological substances; Z79.899 Other long term (current) drug therapy; Z20.822 Contact with and (suspected) exposure to COVID-19
CPT/HCPCS: 36415; 80053; 80143; 80179; 80305-QW; 80307; 81001; 81025; 84443; 85025; 99284; 99285; A9270-GY; U0002

== ENCOUNTER 2020-12-28 09:55 | Emergency (ER) | payer MEDICARE, MEDICAID ==
--- NOTE | 2020-12-28 10:16 | EDM.PDOC ---
ED HPI GENERAL MEDICAL PROBLEM - General Chief Complaint: Drug or Alcohol Abuse Stated Complaint: CLEARENCE Time Seen by Provider: 12/28/20 10:04 Source of Information: Reports: Patient History Limitations: Reports: No Limitations - History of Present Illness INITIAL COMMENTS - FREE TEXT/NARRATIVE: Pt. presents to ER with staff from [facility], requesting medical clearance for admis francisca to [facility] for alcohol treatment. Pt. states that she has been drinking heavily throughout the night, and states that she had 2 beers right before coming to hospital. Denies any street drug use. She is a smoker (1PPD). Pt. denies any current suicidal or homicidal ideation. Pt. has been seen in this facility twice this year and several times in 2019 with intoxication, suicidal ideation necessitating transfer to the [facility] on several occasions. She identifies Ana Maria Trinidad NP at [facility] as her PCP. Pt. denies any fever, chills, nausea, vomiting, abdominal pain, chest pain, lyn rtness of breath, rashes, or other worrisome signs/symptoms. Onset Date: 12/28/20 Location: Reports: Generalized - Related Data Allergies Allergy/AdvReac Type Severity Reaction Status Date / Time codeine Allergy Itching Verified 12/28/20 10:16 gabapentin Allergy Swelling Verified 12/28/20 10:16 latex Allergy Rash Verified 12/28/20 10:16 minocycline Allergy Hives Verified 12/28/20 10:16 nickel Allergy Rash Verified 12/28/20 10:16 trazodone Allergy Excitabilit Verified 12/28/20 10:16 y environmental Allergy Other Uncoded 12/28/20 10:16 Home Meds: Home Meds Albuterol [Take Home: Albuterol 18 GM, 1 INH Pack] 2 puff INH Q4H PRN 05/14/20 [History] Cyclobenzaprine [Flexeril] 5 mg PO DAILY 05/14/20 [History] Fluticasone Propionate [Flonase] 1 inh NASBOTH DAILY 05/14/20 [History] Levothyroxine 150 mcg PO DAILY 05/14/20 [History] Loratadine 10 mg PO DAILY 05/14/20 [History] Naltrexone 50 mg PO DAILY 05/14/20 [History] Pantoprazole [ProTONIX] 40 mg PO DAILY 05/14/20 [History] QUEtiapine [SEROquel] 50 mg PO BEDTIME 05/14/20 [History] Spironolactone [Aldactone] 75 mg PO DAILY 05/14/20 [History] lamoTRIgine [Lamotrigine] 50 mg PO DAILY 05/14/20 [History] lamoTRIgine [Lamotrigine] 100 mg PO DAILY 05/14/20 [History] Prazosin HCl [Prazosin] 3 mg PO BEDTIME 06/05/20 [History] Calcium Carbonate [Tums Extra Strength] 750 mg PO DAILY 12/28/20 [History] Cholecalciferol (Vitamin D3) [Vitamin D3] 5,000 unit PO DAILY 12/28/20 [History] Docusate Sodium [Colace] 100 mg PO BID 12/28/20 [History] Docusate Sodium/Sennosides [Senokot-S] 2 each PO BID 12/28/20 [History] Ferrous Sulfate 325 mg PO DAILY 12/28/20 [History] Folic Acid 0.8 mg PO DAILY 12/28/20 [History] Pyridoxine HCl (Vitamin B6) [Vitamin B-6] 100 mg PO DAILY 12/28/20 [History] metFORMIN [Glucophage] 500 mg PO BIDMEALS 12/28/20 [History] Past Medical History Cardiovascular History: Reports: Blood Clots/VTE/DVT Respiratory History: Reports: Asthma Psychiatric History: Reports: Other (See Below) Other Psychiatric History: Borderline Personality Disorder Endocrine/Metabolic History: Reports: Hypothyroidism Other Hematologic History: Factor 5 - Past Surgical History GI Surgical History: Reports: Bariatric Procedure Social & Family History - Family History Family Medical History: Unobtainable - Caffeine Use Caffeine Use: Reports: None ED ROS GENERAL - Review of Systems Review Of Systems: Comprehensive ROS is negative, except as noted in HPI. ED EXAM, GENERAL - Physical Exam Exam: See Below Exam Limited By: No Limitations General Appearance: Alert, WD/WN, No Apparent Distress Eye Exam: Bilateral Eye: EOMI, PERRL Ears: Normal External Exam Nose: Normal Inspection Throat/Mouth: Normal Inspection, Normal Lips, Normal Teeth, Normal Oropharynx, No Airway Compromise Head: Atraumatic, Normocephalic Neck: Normal Inspection, Full Range of Motion Respiratory/Chest: No Respiratory Distress, Lungs Clear, Normal Breath Sounds, No Accessory Muscle Use, Chest Non-Tender Cardiovascular: Normal Peripheral Pulses, Regular Rate, Rhythm, No Edema, No JVD, No Murmur, No Rub Peripheral Pulses: 4+: Radial (L) GI/Abdominal: Non-Tender (Female) Exam: Deferred Rectal (Female) Exam: Deferred Back Exam: Normal Inspection, Full Range of Motion Extremities: Normal Inspection, Normal Range of Motion, Non-Tender Neurological: Alert, Oriented, CN II-XII Intact, Normal Cognition, Normal Gait, No Motor/Sensory Deficits Psychiatric: Normal Affect, Normal Mood Skin Exam: Warm, Dry, Intact, Normal Color, No Rash Lymphatic: No Adenopathy Course - Vital Signs Last Recorded V/S: Last Vital Signs Temp 36.2 C 12/28/20 10:00 Pulse 100 12/28/20 10:00 Resp 16 12/28/20 10:00 BP 136/110 H 12/28/20 10:00 Pulse Ox 98 12/28/20 10:00 - Orders/Labs/Meds Orders: Active Orders 24 hr Category Date Time Status CIWAA Assessment [RC] ASDIRECTED Care 12/28/20 10:57 Ordered Labs: Laboratory Tests 12/28/20 12/28/20 12/28/20 Range/Units 10:25 10:25 10:25 WBC (4.0-10.0) x10^3/uL RBC (4.00-5.50) x10^6/uL Hgb (12.0-16.0) g/dL Hct (33.0-47.0) % MCV (78.0-93.0) fL MCH (26.0-32.0) pg MCHC (32.0-36.0) g/dL RDW Coeff of Calista (10.0-15.0) % Plt Count (130-400) x10^3/uL Neut % (Auto) (50.0-80.0) % Lymph % (Auto) (25.0-50.0) % [place] % (Auto) (2.0-11.0) % Eos % (Auto) (0.0-4.0) % Baso % (Auto) (0.2-1.2) % Sodium (136-145) mmol/L Potassium (3.5-5.1) mmol/L Chloride (98-107) mmol/L Carbon Dioxide (21-32) mmol/L Anion Gap (5-15) mmol/L BUN (7-18) mg/dL Creatinine (0.55-1.02) mg/dL Est Cr Clr Drug Dosing Estimated GFR (MDRD) Glucose (70-99) mg/dL Calcium (8.5-10.1) mg/dL Corrected Calcium (8.5-10.1) mg/dL Magnesium (1.8-2.4) mg/dL Total Bilirubin (0.2-1.0) mg/dL AST (15-37) U/L ALT (14-59) U/L Alkaline Phosphatase (46-116) U/L Total Protein (6.4-8.2) g/dL Albumin (3.4-5.0) g/dL Globulin Albumin/Globulin Ratio TSH, Ultra Sensitive (0.358-3.74) uIU/mL Urine Color Dark yellow H (YELLOW) Urine Appearance Cloudy H (CLEAR) Urine pH 5.5 (5.0-8.0) Ur Specific [place] >=1.030 Urine Protein >=300 H (NEGATIVE) mg/dL Urine Glucose (UA) Negative (NEGATIVE) mg/dL Urine Ketones 15 H (NEGATIVE) mg/dL Urine Occult Blood Moderate H (NEGATIVE) Urine Nitrite Negative (NEGATIVE) Urine Bilirubin Moderate H (NEGATIVE) Urine Urobilinogen 2.0 H (0.2) EU/dL Ur Leukocyte Esterase Negative (NEGATIVE) Urine RBC 10-20 H (NOT SEEN) /HPF Urine WBC 0-5 (NOT SEEN) /HPF Ur Squamous Epith Cells Moderate H (NOT SEEN) /HPF Urine Bacteria Few H (NOT SEEN) /HPF Urine Mucus Occasional H (NOT SEEN) /LPF Urine HCG, Qual Negative (NEGATIVE) Urine Opiates Screen Negative (NEGATIVE) Ur Buprenorphine Scrn Negative (NEGATIVE) Ur Oxycodone Screen Negative (NEGATIVE) Ur EDDP (Meth Metab) Negative (NEGATIVE) Urine Methadone Screen Negative (NEGATIVE) Acetaminophen (10-30) ug/ml Ur Barbiturates Screen Negative (NEGATIVE) Ur Tricyclics Screen Positive H (NEGATIVE) Ur Phencyclidine Scrn Negative (NEGATIVE) Ur Amphetamine Screen Negative (NEGATIVE) U Methamphetamines Scrn Negative (NEGATIVE) Urine MDMA Screen Negative (NEGATIVE) U Benzodiazepines Scrn Negative (NEGATIVE) U Cocaine Metab Screen Negative (NEGATIVE) U Marijuana (THC) Screen Negative (NEGATIVE) Ethyl Alcohol (0-3) mg/dL 12/28/20 12/28/20 Range/Units 10:28 10:28 WBC 6.6 (4.0-10.0) x10^3/uL RBC 5.02 (4.00-5.50) x10^6/uL Hgb 15.9 (12.0-16.0) g/dL Hct 45.4 (33.0-47.0) % MCV 90.4 (78.0-93.0) fL MCH 31.7 (26.0-32.0) pg MCHC 35.0 (32.0-36.0) g/dL RDW Coeff of Calista 15.9 H (10.0-15.0) % Plt Count 296 (130-400) x10^3/uL Neut % (Auto) 47.9 L (50.0-80.0) % Lymph % (Auto) 32.2 (25.0-50.0) % [place] % (Auto) 18.5 H (2.0-11.0) % Eos % (Auto) 0.6 (0.0-4.0) % Baso % (Auto) 0.8 (0.2-1.2) % Sodium 138 (136-145) mmol/L Potassium 3.4 L (3.5-5.1) mmol/L Chloride 98 (98-107) mmol/L Carbon Dioxide 28 (21-32) mmol/L Anion Gap 15.4 H (5-15) mmol/L BUN 9 (7-18) mg/dL Creatinine 0.8 (0.55-1.02) mg/dL Est Cr Clr Drug Dosing TNP Estimated GFR (MDRD) > 60 Glucose 94 (70-99) mg/dL Calcium 8.3 L (8.5-10.1) mg/dL Corrected Calcium 8.62 (8.5-10.1) mg/dL Magnesium 1.6 L (1.8-2.4) mg/dL Total Bilirubin 0.4 (0.2-1.0) mg/dL AST 137 H (15-37) U/L ALT 128 H (14-59) U/L Alkaline Phosphatase 85 (46-116) U/L Total Protein 7.3 (6.4-8.2) g/dL Albumin 3.6 (3.4-5.0) g/dL Globulin 3.7 Albumin/Globulin Ratio 0.97 TSH, Ultra Sensitive 2.922 (0.358-3.74) uIU/mL Urine Color (YELLOW) Urine Appearance (CLEAR) Urine pH (5.0-8.0) Ur Specific [place] Urine Protein (NEGATIVE) mg/dL Urine Glucose (UA) (NEGATIVE) mg/dL Urine Ketones (NEGATIVE) mg/dL Urine Occult Blood (NEGATIVE) Urine Nitrite (NEGATIVE) Urine Bilirubin (NEGATIVE) Urine Urobilinogen (0.2) EU/dL Ur Leukocyte Esterase (NEGATIVE) Urine RBC (NOT SEEN) /HPF Urine WBC (NOT SEEN) /HPF Ur Squamous Epith Cells (NOT SEEN) /HPF Urine Bacteria (NOT SEEN) /HPF Urine Mucus (NOT SEEN) /LPF Urine HCG, Qual (NEGATIVE) Urine Opiates Screen (NEGATIVE) Ur Buprenorphine Scrn (NEGATIVE) Ur Oxycodone Screen (NEGATIVE) Ur EDDP (Meth Metab) (NEGATIVE) Urine Methadone Screen (NEGATIVE) Acetaminophen 0 L (10-30) ug/ml Ur Barbiturates Screen (NEGATIVE) Ur Tricyclics Screen (NEGATIVE) Ur Phencyclidine Scrn (NEGATIVE) Ur Amphetamine Screen (NEGATIVE) U Methamphetamines Scrn (NEGATIVE) Urine MDMA Screen (NEGATIVE) U Benzodiazepines Scrn (NEGATIVE) U Cocaine Metab Screen (NEGATIVE) U Marijuana (THC) Screen (NEGATIVE) Ethyl Alcohol 346 H* (0-3) mg/dL Departure - Departure Time of Disposition: 11:16 Disposition: DC/Tfer to Psych Hosp/[facility] Clinical Impression: Alcohol abuse, Hematuria - Discharge Information Instructions: Alcohol Use Disorder, Hematuria, Adult Referrals: Ana Maria Trinidad NP [Primary Care Provider] - Forms: ED Department Discharge Additional Instructions: You are cleared for placement in the [facility]. Continue to drink plenty of water, as we discussed. Follow-up in the clinic after you are done with treatment. You have had a small amount of blood in your urine. This can be caused by many things and may be an incidental finding, but should be followed up on. Sepsis Event Note (ED) - Evaluation Sepsis Screening Result: No Definite Risk - Focused Exam Vital Signs: Vital Signs Temp Pulse Resp BP Pulse Ox 12/28/20 10:00 36.2 C 100 16 136/110 H 98 - Problem List Review Problem List Initiated/Reviewed/Updated: Yes - My Orders Last 24 Hours: My Active Orders 12/28/20 10:57 CIWAA Assessment [RC] ASDIRECTED - Assessment/Plan Last 24 Hours: My Active Orders 12/28/20 10:57 CIWAA Assessment [RC] ASDIRECTED Plan: You are cleared for placement in the [facility]. Continue to drink plenty of water, as we discussed. Follow-up in the clinic after you are done with treatment. You have had a small amount of blood in your urine. This can be caused by many things and may be an incidental finding, but should be followed up on.
[2020-12-28 10:37] LABS: BARBITURATE SCREEN,URINE NEGATIVE (NEGATIVE); BENZODIAZEPINES SCREEN,URINE NEGATIVE (NEGATIVE); EDDP,URINE SCREEN NEGATIVE (NEGATIVE); METHAMPHETAMINE SCREEN, URINE NEGATIVE (NEGATIVE); TCA SCREEN,URINE POSITIVE (NEGATIVE); THC SCREEN,URINE 50 NG/ML NEGATIVE (NEGATIVE)
[2020-12-28 11:04] LABS: CHLORIDE,CL 98 mmol/L (98-107); SODIUM,NA 138 mmol/L (136-145)
[2020-12-28 11:05] LABS: ACETAMINOPHEN 0 ug/ml (10-30); ANION GAP 15.4 mmol/L (5-15)
== END 2020-12-28 11:22 ==
LOC: VM.ED 09:55
DX: F10.129 Alcohol abuse with intoxication, unspecified (principal); R31.9 Hematuria, unspecified; Y90.8 Blood alcohol level of 240 mg/100 ml or more; J45.909 Unspecified asthma, uncomplicated; E03.9 Hypothyroidism, unspecified; Z79.899 Other long term (current) drug therapy; Z91.09 Other allergy status, other than to drugs and biological substances; Z88.8 Allergy status to other drugs, medicaments and biological substances; Z91.040 Latex allergy status; Z88.5 Allergy status to narcotic agent; Z88.1 Allergy status to other antibiotic agents; Z91.048 Other nonmedicinal substance allergy status
CPT/HCPCS: 36415; 80053; 80143; 80305-QW; 80307; 81001; 81025; 83735; 84443; 85025; 99283